=== PATIENT | male | born 1960 | race Caucasian/White ===

== ENCOUNTER 2017-07-28 06:42 | Day surgery (SDC) | payer BC ==
[~2017-07-28] VITALS: Ht 172.7 cm; Wt 81.6 kg
[2017-07-28] MEDS ORDERED: CEFAZOLIN 1 GM IVPB PREMIX 50 ML IV ONE (09:00)
[2017-07-28] MEDS ORDERED: fentaNYL CITRATE 250 MCG/5 ML AMP IV ONE (10:36)
[2017-07-28] MEDS ORDERED: MIDAZOLAM HCL 5 MG/5 ML VIAL IVP ONE (10:36)
[2017-07-28] MEDS ORDERED: METOCLOPRAMIDE HCL 10 MG/2 ML VIAL IVP ONE (10:36)
[2017-07-28] MEDS ORDERED: KETOROLAC TROMETHAMINE 30 MG VIAL IVP ONE (10:36)
[2017-07-28] MEDS ORDERED: GLYCOPYRROLATE 0.2 MG/ML VIAL IJ ONE (10:36)
[2017-07-28] MEDS ORDERED: DEXAMETHASONE SOD PHOSPHATE 4 MG/ML VIAL IVP ONE (10:36)
[2017-07-28] MEDS ORDERED: ROCURONIUM BROMIDE 10 MG/ML (ZEMURON) IV ONE (10:36)
[2017-07-28] MEDS ORDERED: LR 1,000 ML IV.SOLN IV ONE (10:36)
[2017-07-28] MEDS ORDERED: PROPOFOL 200MG/ 20ML VIAL (DIPRIVAN) IV ONE (10:36)
[2017-07-28] MEDS ORDERED: SEVOFLURANE 15 MIN GAS INH ONE (10:36)
[2017-07-28] MEDS ORDERED: LR 1,000 ML IV ONE (11:24)
[2017-07-28] MEDS ORDERED: NALBUPHINE HCL 10 MG/ML AMP IVP PRN (11:30)
[2017-07-28] MEDS ORDERED: ONDANSETRON HCL 4 MG/2 ML VIAL IVP PRN ×2 (11:30)
[2017-07-28] MEDS ORDERED: ePHEDrine sulfate 50 MG/ML VIAL IVP PRN (11:30)
[2017-07-28] MEDS ORDERED: NALOXONE HCL 0.4 MG/ML AMP (NARCAN) IVP PRN (11:30)
[2017-07-28] MEDS ORDERED: DIPHENHYDRAMINE INJ 50 MG/ML VIAL IVP PRN (11:30)
[2017-07-28] MEDS ORDERED: fentaNYL CITRATE/PF 100 MCG/2 ML AMP IVP PRN (11:30)
[2017-07-28] MEDS ORDERED: D5/0.45 NS 1,000 ML IV SCH (11:37)
[2017-07-28] MEDS ORDERED: HYDROcodone/ACETAMIN 5-325 MG TAB (NORCO/ VICODIN) PO PRN ×2 (11:45)
[2017-07-28] MEDS ORDERED: HYDROmorphone 1 MG INJ. 1 MG/ML AMPUL IVP PRN (11:45)
[2017-07-28 12:45] VITALS: BP_SYST 138
[2017-07-28] MEDS ORDERED: HYDROcodone/ACETAMIN 5-325 MG TAB (NORCO/ VICODIN) ONE (12:50)
== END 2017-07-28 13:50 | disposition home or self-care (01) ==
LOC: SDS 06:42 → SMU 06:42 → SDS 13:50
PROVIDERS: ATTEND Colon & Rectal Surgery
DX: K42.0 Umbilical hernia with obstruction, without gangrene (principal); I10 Essential (primary) hypertension; E78.5 Hyperlipidemia, unspecified; B35.1 Tinea unguium; Z98.890 Other specified postprocedural states; Z79.899 Other long term (current) drug therapy
CPT/HCPCS: 49587; 88302; C1781; J0690; J1100; J1885; J2250; J2704; J2765; J3010; J3490; J7120